=== PATIENT | male | born 1955 | race Caucasian/White ===

== ENCOUNTER → 2022-03-09 | Outpatient (CLI) | payer OTHER ==
--- NOTE | 2022-03-09 13:56 | Diagnostic Imaging Report ---
INDICATION: Right knee pain AP, lateral, and oblique views of the right knee are obtained as well as a sunrise view. No fracture or acute bone abnormality is seen. There is marked medial joint space narrowing with osteophyte formation and moderate lateral joint space osteophyte formation. There is patellofemoral spurring. 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 Dictated by: Dictated on workstation # [id number]
== END ==
LOC: ORTHO 08:56
PROVIDERS: ATTEND Orthopaedic Surgery
DX: M17.11 Unilateral primary osteoarthritis, right knee (principal); S83.191A Other subluxation of right knee, initial encounter
CPT/HCPCS: 20610; 73564

== ENCOUNTER → 2023-03-20 | Outpatient (CLI) | payer MEDICARE, OTHER | LOC: ORTHO 09:21 | PROVIDERS: ATTEND Orthopaedic Surgery | DX: M17.11 Unilateral primary osteoarthritis, right knee (principal) | CPT/HCPCS: 20610 ==